=== PATIENT | female | born 1990 | race Caucasian/White ===

== ENCOUNTER 2017-05-09 06:11 | Emergency (ER) | payer OTHER ==
[~2017-05-09] VITALS: Ht 154.9 cm; Wt 88.6 kg
[2017-05-09 06:38] VITALS: BP 126/78; PULSE 74; RESP 18; O2SAT 100
--- NOTE | 2017-05-09 06:54 | ED.REPORT ---
HPI-Back Pain Under 40 Date of Service May 09, 2017 ED Provider: Noel Rodas MD Pt is a 26 year old female with a hx of chronic back pain presenting to the ED complaining of 7/10 lower back pain onset when she got up off the couch yesterday afternoon. The pain radiates to her right hip. Denies nausea, vomiting , diarrhea, numbness or tingling, incontinence, or any other symptoms at this time. She states that this feels the same as her usual pain that she has had since she was 13. Nursing Notes Stated Complaint: LOWER BACK PAIN Chief Complaint: Back Pain or Injury Nursing Notes Reviewed: Yes Allergies: Coded Allergies: amoxicillin (Verified Allergy, Unknown, 05/09/17) Scheduled Ciprofloxacin (Ciprofloxacin) 500 Mg Tablet 500 MG PO BID Scheduled PRN Ibuprofen (Ibuprofen) 800 Mg Tablet 800 MG PO TID PRN PRN For Pain General Time Seen by MD: 06:39 Chief Complaint Back pain Hx Obtained From: Patient Arrived By: Walk-in Sudden in Onset?: Yes Onset Occurred: Yesterday Symptom Duration: Since onset Quality: Painful Severity: Current: Severe Severity: Maximum: Severe Recent Healthcare: No recent doctor visit, No recent hospitalization Similar Sx Previous: Yes Past Medical History Past Medical History Chronic back pain Past Surgical History denies Smoking History Unknown if Ever Smoker Ambulatory Status Independent Review of Systems Cardiovascular: Denies: Chest pain GI: Denies: Abdominal pain, Nausea, Vomiting Female: Denies: Incontinence Musculoskeletal: Reports: Back pain Neurologic: Denies: Numbness Complete sys rev & neg: except as marked. Physical Exam Initial Vital Signs Vital Signs (First) Date Time Temp Pulse Resp B/P Pulse Ox O2 Delivery O2 Flow Rate FiO2 05/09/17 06:38 36.6 74 18 126/78 100 Room Air Initial VS: Reviewed Head / Eyes: Atraumatic, Normocephalic, PERRL ENT: Mucous membranes moist, Conjunctiva normal, No scleral icterus Neck: Supple, Non-tender, Full range of motion Respiratory: Breath sounds normal, Clear to auscultation, No respiratory distress Cardiovascular: Heart sounds normal, Intact distal pulses Abdomen / GI: Soft, Non-tender, No guarding, No rebound, No distention Extremities: Vascular intact, Neuro intact, No swelling, No tenderness Skin: Warm, Dry, No cyanosis Psychiatric: Mood/affect normal, Behavior normal, Normal thought content General/Constitutional: Awake, Alert, Well appearing Back: Atraumatic, No CVA tenderness Positive straight leg raise on right at 45 degrees. Neurologic: Oriented X3, Speech NL, No motor deficits, No sensory deficits, Reflexes equal bilat Interpretation & Diagnostics Lab Results Interpretation Test 05/09/17 08:47 Urine Color Yellow (YELLOW) Urine Appearance Clear (CLEAR,HAZY) Urine pH 6.0 (5.0-8.0) Urine Specific [place] 1.026 (1.003-1.035) Urine Protein Negativemg/dL (NEG,TRACE) Urine Glucose (UA) Negativemg/dL (NEGATIVE) Urine Ketones Negativemg/dL (NEGATIVE) Urine Occult Blood Large (NEGATIVE) Urine Nitrite Negative (NEGATIVE) Urine Bilirubin Negative (NEGATIVE) Urine Urobilinogen Normalmg/dL (NORMAL) Urine Leukocyte Esterase Moderate (NEGATIVE) Urine RBC 0-2/hpf (0-2) Urine WBC 11-50/hpf (0-5) Urine Epithelial Cells Moderate/hpf (NONE-MOD) Urine Crystals None seen (NONE SEEN) Urine Bacteria Few/hpf (NONE-FEW) Urine Hyaline Casts None/lpf (NONE) Urine Granular Casts None seen (NONE SEEN) Urine Waxy Casts None seen (NONE SEEN) Urine Red Blood Cell Casts None seen (NONE SEEN) Urine White Blood Cell Casts None seen (NONE SEEN) Urine Mucus None seen (None Seen) Urine Trichomonas None seen (NONE SEEN) Urine Yeast None (NONE SEEN) Urinalysis Comment None Urine Culture Reflexed Indicated Urine HCG, Qualitative Negative (Negative) Re-Eval/Medical Decision Med Decision/Clinical Course 36-year-old female history of chronic back pain for many years presenting complaining of her typical chronic back pain. Reports right lower back pain radiating to right hip. His trauma. No red flag symptoms. Neurological exam is normal. Her urine suggests infection. She is on her menstrual cycle. Her straight leg raises also positive on the right. Suspect sciatica and UTI. No evidence of pyelonephritis. Patient will be treated with oral antibiotics and NSAIDs as needed for pain. Follow-up with primary doctor on Thursday. Return precautions if any signs of pyelonephritis, weakness numbness tingling, incontinence, any other new or worsening symptoms. Re-Evaluation/Progress : Time of Eval: 08:30 Patient Status: Condition improved Re-Evaluation/Progress Note: Discussed plan for discharge. Pt understands and agrees. Counseled Regarding: Diagnosis, Lab results, Need for follow-up, When/why to return to ED Discharge & Departure Impression: Primary Impression: Sciatica Laterality: right Qualified Code: M54.31 - Sciatica, right side Additional Impression: UTI (urinary tract infection) Urinary tract infection type: site unspecified Hematuria presence: without hematuria Qualified Code: N39.0 - Urinary tract infection, site not specified Disposition: Home All VS Reviewed: Yes Condition: Improved Additional Instructions: Your back pain is likely being caused by sciatica. Your urine analysis also shows a urinary tract infection. If you develop any signs of numbness, tingling , nausea, vomiting, diarrhea, fever, or any other worsening symptoms, return to the ER. Follow up with your primary care doctor in the next week if your symptoms don't resolve. Referrals: [facility] Attestation Portions of this note were transcribed by Nohemy Rodas. I, Dr. Rodas personally performed the history, physical exam and medical decision-making; I reviewed and confirmed the accuracy of the information in the transcribed note. Signed by: Azeb Contreras, 05/09/2017 at 0900. copies to: [facility] Noel Rodas MD May 09, 2017 06:54 NOHEMY RODAS May 09, 2017 08:37
[2017-05-09] MEDS ORDERED: IBUP800T28 PO (08:39)
[2017-05-09] MEDS ORDERED: CIPR-198 PO (08:39)
[2017-05-09 09:13] LABS: APPEARANCE,URINE CLEAR (CLEAR,HAZY); COLOR,URINE YELLOW (YELLOW); OCCULT BLOOD,URINE LARGE (NEGATIVE); UROBILINOGEN,URINE NORMAL (NORMAL)
[2017-05-09 09:31] VITALS: BP 117/56; PULSE 55; RESP 14; O2SAT 98
== END 2017-05-09 09:32 | disposition home or self-care (01) ==
LOC: SED 06:11
DX: M54.31 Sciatica, right side (principal); N39.0 Urinary tract infection, site not specified; Z88.1 Allergy status to other antibiotic agents
CPT/HCPCS: 81000; 81025; 87086; 87088; 96372; 99284; J1885